=== PATIENT | female | born 1995 | race Caucasian/White ===

== ENCOUNTER 2020-09-16 10:23 | Emergency (ER) | payer BC, SELFPAY ==
--- NOTE | ~2020-09-16 | US_ITS ---
EXAMINATION: US pelvic complete w TV DATE: 09/16/2020 13:19 INDICATION: Right pelvic pain. TECHNIQUE: Multiple transabdominal and transvaginal sonographic images of the pelvis were obtained. COMPARISON: CT abdomen and pelvis 09/16/2020 FINDINGS: TRANSABDOMINAL ULTRASOUND: The uterus measures 7.6 x 4.0 x 5.0 cm. There is no free fluid in the pelvis. TRANSVAGINAL ULTRASOUND: The endometrial complex measures 4 mm in thickness. The right ovary measures 3.3 x 1.9 x 2.3 cm. The left ovary measures 3.1 x 2.0 x 2.3 cm. There is normal vascular flow in the ovaries. IMPRESSION: 1. Normal pelvis. Reviewed, dictated and finalized at location A. ROOFER IMPRESSION: 1. Normal pelvis.
--- NOTE | ~2020-09-16 | CT_ITS ---
EXAMINATION: CT abdomen pelvis w con EXAM DATE: 09/16/2020 12:24 INDICATION: Right lower quadrant abdominal pain. TECHNIQUE: Spiral CT of the abdomen and pelvis was performed following intravenous injection of 100 m L Omnipaque 350. Axial, coronal and sagittal images were reviewed. The dose-length product (DLP) fo r this examination was 347.45 mGy-cm. The exposure was tailored according to patient size (auto mA e xposure control), and iterative reconstruction (ASIR) was used as additional dose reduction technique . There is no prior study for comparison. FINDINGS: The liver, spleen, adrenal glands and pancreas are unremarkable. Gallbladder is unremarkab le. No biliary obstruction. Portal and splenic veins are patent. Kidneys enhance symmetrically. T here is no hydronephrosis. The uterus is unremarkable. The bladder is unremarkable. There is no retroperitoneal or pelvic lymphadenopathy. The appendix is normal. The stomach and small bowel are unremarkable. There is expected amount of c olonic stool. No free intraperitoneal gas. The heart is normal in size. There are no pericardial or pleural effusions. The lung bases are unremarkable. Thoracic Flores rods. Moderate thoracic dextroscoliosis and lumbar levoscoliosis. Chronic right-sided L5 spondylolysis. No subluxation. IMPRESSION: 1. No acute intra-abdominal findings. Reviewed, dictated and finalized at location A. ER COATER
[2020-09-16 10:30] VITALS: BP 130/79; PULSE 81; RESP 16; TEMP 36.7; O2SAT 97
--- NOTE | 2020-09-16 10:47 | ED.ABDPAIN ---
HPI - Abdominal Pain General Chief Complaint: Abdominal Pain Stated Complaint: R side pain Time Seen by Provider: 09/16/20 10:47 Source: patient Mode of arrival: ambulatory Limitations: no limitations History of Present Illness HPI narrative: 25-year-old woman was previously well comes in today complaining of right lower quadrant pain that started yesterday. She states the pain is worse with bending over and with sudden movements like coughing. She has no pain with walking. She went to her doctor to discuss vaginal discharge and irregular vaginal bleeding that she has had for several months that she attributes to her Implanon. She states that pain is worse today and saw her doctor who sent her here for further evaluation. She has had no appetite; she last ate at approximately 8:30 a.m. this morning. States that she has no nausea, vomiting, diarrhea, vaginal bleeding, or rash. Patient states that she does not have an allergy to morphine however her sister does. MD elicited complaint: abdominal pain Onset (ago): day(s) (1) Pain Consistency: constant Location: RLQ Severity: moderate Quality: sharp Radiation: none Migration to: no migration Exacerbating factors: movement Relieving factors: rest (and sitting up) Related Data Date of Last Menstrual Period: 09/14/20 Home Medications Medication Instructions Recorded Confirmed No Home Medications 09/16/20 09/16/20 Allergies Allergy/AdvReac Type Severity Reaction Status Date / Time No Known Allergies Allergy Verified 09/16/20 11:32 Review of Systems Constitutional: Constitutional: Denies chills, Denies fever(s) and Denies weakness ENT: Denies dysphagia, Denies nasal congestion and Denies sore throat Cardiovascular: Cardiovascular: Denies chest pain and Denies radiating jaw, neck or arm pain Respiratory: Respiratory: Denies cough, Denies dyspnea and Denies wheezing Gastrointestinal: Gastrointestinal: Reports abdominal pain, Denies diarrhea, Denies nausea and Denies vomiting Genitourinary: Genitourinary: Denies nocturia and Denies dysuria Musculoskeletal: Musculoskeletal: Denies back pain, Denies arthralgias and Denies joint swelling Integumentary/Breasts: Skin/Breast: Denies pruritus, Denies erythema and Denies rash Neurologic: Denies vertigo, Denies dizziness and Denies syncope Endocrine: Endocrine: Denies polydipsia and Denies polyuria Hematologic/Lymphatic: Hematologic/Lymphatic: Denies easy bleeding and Denies easy bruising Allergic/Immunologic: Allergic/Immunologic: Denies lip swelling and Denies throat swelling [facility] Social History Social History (Updated 09/16/20 @ 11:05 by Daniel Zamora MD) Smoking status: Current some day smoker Alcohol intake: current Alcohol use details: rarely Substance use type: marijuana Other substance usage details: Occasional Living arrangements: with family 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 HENMT: Head: normal to inspection Ears: external ears normal, TM's normal bilaterally and EAC's normal General nose exam: Normal nares present Face and sinus: normal facial exam Mouth: Yes moist mucous membranes Throat: posterior oropharynx normal Eyes: Conjunctivae: conjunctivae normal Pupils: Equal, round and reactive pupils present EOM: EOMs intact bilaterally Resp: Effort & Inspection: normal respiratory effort and not labored Auscultation: clear to auscultation bilaterally, no rales, no rhonchi and no wheezes Cardio: Rate: regular rate Rhythm: regular rhythm Heart sounds: no murmurs GI: GI Palp: Yes Soft to palpation, No Tenderness to palpation present (GI), No Guarding due to palpation present (GI) and No Palpable mass present Auscultation: normal bowel sounds Back/Spine/Pelvis: Back: no C
[2020-09-16 10:53] LABS: Add Urine Microscopic? NO; Appearance Urine Clear (Clear); Bilirubin Urine Negative (Negative); Blood Urine Negative (Negative); Color Urine Yellow (Yellow); Glucose Urine UA Negative (Negative); Ketones Urine Negative (Negative); Leukocyte Esterase Ur Negative LEU/UL (Negative); Nitrate Urine Negative (Negative); Protein Urine Negative (Negative); Urobilinogen Urine 0.2 mg/dL (0.2-1.0); pH Urine 6.5 (5.0-8.0)
[2020-09-16 10:59] LABS: Pregnancy On Board Control Positive; Urine Pregnancy Test Negative
[2020-09-16] MEDS: HYDROmorphone HCL INJ (*CRX) 2 MG/ML VIAL 0.5 MG IV PUSH ×2 (11:06→12:53)
[2020-09-16] MEDS: ONDANSETRON INJ 4 MG/2 ML VIAL IV PUSH (11:06)
[2020-09-16] MEDS: SODIUM CHLORIDE 0.9% IV 1,000 ML 999 ML IV CONT (11:07)
[2020-09-16 11:11] LABS: Basophils Absolute Auto 0.04 K/mm3 (0.00-0.10); Basophils Percent Auto 0.7 % (0.0-1.0); Eosinophils Absolute Auto 0.17 K/mm3 (0.02-0.50); Eosinophils Percent Auto 3.2 % (1.0-6.0); Hematocrit 42.3 % (35.0-49.0); Hemoglobin 13.9 g/dL (12.0-15.0); Immature Granulocyte Absolute 0.02 K/mm3 (0.00-0.00); Immature Granulocyte Percent A 0.4 % (0.0-0.0); Lymphocytes Percent Auto 35.3 % (18.0-42.0); Mean Corpuscular HGB Conc 32.9 g/dL (32.0-36.0); Mean Corpuscular Hemoglobin 30.8 pg (27.0-31.0); Mean Corpuscular Volume 93.8 fL (78.0-102.0); Mean Platelet Volume 8.7 fl (9.2-11.8); Monocytes Absolute Auto 0.43 K/mm3 (0.10-0.90); Neutrophils Absolute Auto 2.8 K/mm3 (1.7-7.2); Neutrophils Percent Auto 52.4 % (50.0-70.0); Platelet Count Result 296 K/mm3 (150-420); Red Blood Count 4.51 M/mm3 (4.20-5.40); White Blood Count 5.4 K/mm3 (4.8-10.8)
[2020-09-16 11:26] LABS: Partial Thromboplastin Time 34.5 SEC (23.90-30.70)
[2020-09-16 11:27] LABS: Alanine Aminotransferase 16 U/L (14-59); Albumin Level 4.4 g/dL (3.4-5.0); Alkaline Phosphatase 75 U/L (46-116); Anion Gap 9 mmol/L (8-16); Aspartate Amino Transferase 11 U/L (15-37); Bilirubin,Total 0.6 mg/dL (0.00-1.00); Blood Urea Nitrogen 7 mg/dL (7-18); Calcium 9.4 mg/dL (8.5-10.1); Carbon Dioxide 28 mmol/L (21-32); Chloride 101 mmol/L (98-108); Estimated Glomerular Filt Rate > 60; Glucose 91 mg/dL (70-99); Osmolality Calculated 284 mOsm/kg (285-295); Sodium 138 mmol/L (136-145); Total Protein 8.1 g/dL (6.4-8.2)
[2020-09-16 11:32] LABS: Lactic Acid Reflex 0.7 mmol/L (0.4-2.0)
--- NOTE | 2020-09-16 13:03 | PC.NURSE ---
FEMALE ASSISTANCE WITH PELVIC EXAM - PT THEN SENT TO US
[2020-09-16] MEDS: cefTRIAXone 500 MG in DEXTROSE 5% IN WATER 50 ML 100 MG IVPB (13:38)
[2020-09-16 13:55] VITALS: BP 132/82
== END 2020-09-16 13:55 | disposition home or self-care (01) ==
PROVIDERS: Emergency Provider Emergency Medicine
DX: R10.2 Pelvic and perineal pain (principal)
CPT/HCPCS: 36415; 74177; 76830; 76856; 80053; 81003; 81025; 83605; 85025; 85610; 85730; 96361; 96365; 96375; 96376; 99283; 99284; J0696; J1170; J2405; J7030; Q9967

== ENCOUNTER 2021-07-24 14:27 | Outpatient (CLI) | payer BC, SELFPAY ==
--- NOTE | ~2021-07-24 | XR_ITS ---
EXAMINATION: XR lumbar spine 2-3V EXAM DATE: 07/24/2021 14:53 INDICATION: Scoliosis of lumbar spine w/ lower back pain since Halloween. TECHNIQUE: Lumber spine frontal, lateral, lateral L5-S1 projections for interpretation. There is no prior study for comparison. FINDINGS: Incompletely imaged Flores rods with lowest level pedicular screws at L1. There is mod erate lumbar levoscoliosis. Thin appearing L5 pars without evidence subluxation. Mild lumbar disc dis ease. There is mild to moderate lumbar facet arthropathy. Sacrum, sacroiliac joints, sacral arcuate l avni are intact. IMPRESSION: 1. Moderate lumbar levoscoliosis. 2. Thoracic-L1 Flores rods. 3. Mild to moderate facet arthropathy. Reviewed, dictated and finalized at location A. IC WELFARE DIRECTOR
== END 2021-07-24 14:28 | disposition home or self-care (01) ==
PROVIDERS: PCP Physician Assistant; Visit Provider Physician Assistant
DX: M41.87 Other forms of scoliosis, lumbosacral region (principal)
CPT/HCPCS: 72100

== ENCOUNTER 2021-07-26 12:14 | Outpatient (CLI) | payer BC, SELFPAY ==
--- NOTE | ~2021-07-26 | US_ITS ---
EXAMINATION: US pelvic complete DATE: 07/26/2021 12:31 INDICATION: Hemorrhagic cyst of the ovary TECHNIQUE: Multiple transabdominal sonographic images of the pelvis were obtained. COMPARISON: 09/16/2020 FINDINGS: The uterus measures 6.8 x 3.5 x 4.1 cm. The endometrial complex measures 5 mm. The right ov jimena measures 2.2 x 1.4 x 1.8 cm. The left ovary measures 2.3 x 1.8 x 2.0 cm. No ovarian cysts are stew ntified. There is normal vascular flow in the ovaries. There is no free fluid in the pelvis. IMPRESSION: 1. Unremarkable pelvic ultrasound. Reviewed, dictated and finalized at location A. 'S CUSTOM HAIR PIECE CONSULTANT
== END 2021-07-26 12:15 | disposition home or self-care (01) ==
LOC: CHSIMG 12:15
PROVIDERS: PCP Physician Assistant; Visit Provider Physician Assistant
DX: M41.87 Other forms of scoliosis, lumbosacral region (principal); N83.292 Other ovarian cyst, left side
CPT/HCPCS: 76856

== ENCOUNTER 2021-07-26 13:56 | Outpatient (RCR) | payer BC, SELFPAY ==
--- NOTE | 2021-08-03 06:59 | PTOPEVAL ---
Thank you for referring Basilia Booth to [facility].? The patient is scheduled to be seen for therapy? ____x/week for ___ weeks. Please review, sign, date and return this plan of care DIA. I agree with and certify that the following plan of care is medically necessary. Referring Physician Date Admitting Provider: Attending Provider: Mikey Garcia, PA Referring Provider: *PT Outpatient Evaluation Start: 07/26/21 14:08 Freq: Status: Active Protocol: Document 07/26/21 14:00 [facility] (Rec: 08/02/21 21:51 [facility] Filej) Therapy Assessment Status Assessment Status Assessment Status Evaluation Outpatient Past Medical History Musculoskeletal History Hx Scoliosis Yes Hx Spinal Surgery Yes: FUSION Evaluation Information Problem Diagnosis lumbar radiculopathy Onset 06/13/21 Additional Evaluation Detail oswestry = 46% functionally declined Subjective Information patient reports she has been Query Text:As Reported By Patient/ having increased pain in the Family lower back and down the L greater than R LE for over a month. she reports no injury and no change in activity. she reports she has pain that runs down the back of the L LE , and is mostly along the entire lower back. she reports she has increased pain with standing, working, lifting, and any increased time doing activities. she reports she is most comfortable when laying down on her side. she reports discomfort with laying directly on her back which used to be comfortable for her . 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 she reports she has had a history of back problems since she was 13 when she developed an acute onset scoliosis that required rods in her back to stabilize. Pain Assessment Timing of Pain Assessment Timing of Pain Assessment Assessment Pain Scale Pain Scale Used Numeric (1 - 10) Self Report Pain Assessment
--- NOTE | 2021-09-27 07:48 | PCPTNOTE ---
patient has not been back to skilled PT since 07/31/21. as of this date, she will be dc'd from skilled PT services and all progress towards goals will be taken from her most recent evaluation/note. DARIUS
== END 2021-07-31 13:55 | disposition home or self-care (01) ==
LOC: CHSPT 13:56
PROVIDERS: PCP Physician Assistant; Visit Provider Physician Assistant
DX: M54.16 Radiculopathy, lumbar region (principal)
CPT/HCPCS: 97014; 97110; 97140; 97161; G0283

== ENCOUNTER 2022-10-24 11:37 | Outpatient (CLI) | payer BC, SELFPAY ==
[2022-10-24 12:00] LABS: Basophils Absolute Auto 0.05 K/mm3 (0.00-0.10); Basophils Percent Auto 0.5 % (0.0-1.0); Eosinophils Absolute Auto 0.15 K/mm3 (0.02-0.50); Eosinophils Percent Auto 1.5 % (1.0-6.0); Hematocrit 39.8 % (35.0-49.0); Hemoglobin 13.4 g/dL (12.0-15.0); Immature Granulocyte Absolute 0.05 K/mm3 (0.00-0.00); Immature Granulocyte Percent A 0.5 % (0.0-0.0); Lymphocytes Absolute Auto 2.36 K/mm3 (1.10-4.50); Lymphocytes Percent Auto 22.9 % (18.0-42.0); Mean Corpuscular HGB Conc 33.7 g/dL (32.0-36.0); Mean Corpuscular Hemoglobin 31.8 pg (27.0-31.0); Mean Corpuscular Volume 94.3 fL (78.0-102.0); Mean Platelet Volume 8.5 fl (9.2-11.8); Monocytes Absolute Auto 0.72 K/mm3 (0.10-0.90); Neutrophils Percent Auto 67.6 % (50.0-70.0); Platelet Count Result 333 K/mm3 (150-420); Red Blood Count 4.22 M/mm3 (4.20-5.40); Red Cell Distribution Width 13.2 % (11.6-14.4); White Blood Count 10.3 K/mm3 (4.8-10.8)
[2022-10-24 12:54] LABS: HIV 1 P24 AG Negative (Negative); HIV 1/2 AB Negative (Negative)
[2022-10-26 10:48] LABS: Rubella IgG Antibody 1.14 Index
[2022-10-26 12:20] LABS: RPR Screen Non-Reactive (Non-Reactive)
[2022-10-26 17:57] LABS: CMV IgG Antibody <0.60 U/mL (<0.60)
[2022-11-05 11:48] LABS: CF Result NEGATIVE (NEGATIVE); Ethnicity W
[2022-11-07 15:21] LABS: SMA 2.0 RISK VARIANT NOT DETECTED
[2022-11-09 13:12] LABS: SMA Results Received Yes
== END 2022-10-24 11:38 | disposition home or self-care (01) ==
LOC: CHSLAB 11:39
PROVIDERS: PCP Physician Assistant; Visit Provider Student in an Organized Health Care Education/Training Program
DX: N94.89 Other specified conditions associated with female genital organs and menstrual cycle (principal); R82.90 Unspecified abnormal findings in urine
CPT/HCPCS: 36415; 81220; 81329; 84702; 85025; 86592; 86644; 86703; 86747; 86762; 86787; 86850; 86900; 86901; 87086

== ENCOUNTER 2023-03-19 08:00 | Outpatient (RCR) | payer BC, SELFPAY ==
[2023-03-16 10:06] LABS: Basophils Percent Auto 0.5 % (0.2-1.2); Eosinophils Absolute Auto 0.1 K/mm3 (0-0.3); Eosinophils Percent Auto 1.2 % (0-4.4); Hematocrit 39.1 % (37.0-47.0); Hemoglobin 12.8 g/dL (12.0-15.0); Immature Granulocyte Absolute 0.11 K/mm3 (0.00-0.031); Immature Granulocyte Percent A 1.3 % (0-0.5); Lymphocytes Absolute Auto 1.66 K/mm3 (0.9-3.2); Lymphocytes Percent Auto 20.4 % (18.3-44.2); Mean Corpuscular HGB Conc 32.7 g/dl (32-36); Mean Corpuscular Hemoglobin 32.5 pg (26-34); Mean Corpuscular Volume 99.2 fl (80-100); Mean Platelet Volume 8.7 fl (7.4-10.4); Monocytes Absolute Auto 0.5 K/mm3 (0.1-0.6); Monocytes Percent Auto 5.5 % (2.6-8.5); Neutrophils Absolute Auto 5.8 K/mm3 (1.3-6.7); Neutrophils Percent Auto 71.1 % (45.5-73.1); Platelet Count Result 250 k/mm3 (150-375); Red Blood Count 3.94 M/mm3 (4.2-5.4); Red Cell Distribution Width 13.1 % (11.5-14.5); White Blood Count 8.2 K/mm3 (4.5-10.0)
[2023-03-16 10:18] LABS: Glucose 1 Hour PP 50gm Dose 61 mg/dL
[2023-03-16 10:58] LABS: HIV 1/2 Ab P24 Ag Result Negative (Negative)
[2023-03-19] MEDS: RHO(D) IMMUNE GLOBULIN 300 MCG/2 ML SYRINGE IM (08:57)
== END 2023-06-14 23:59 | disposition home or self-care (01) ==
LOC: ANHLAB 08:00
PROVIDERS: PCP Physician Assistant; Visit Provider Obstetrics & Gynecology
DX: Z11.4 Encounter for screening for human immunodeficiency virus [HIV] (principal); Z29.13 Encounter for prophylactic Rho(D) immune globulin; O36.0190 Maternal care for anti-D [Rh] antibodies, unspecified trimester, not applicable or unspecified; Z3A.00 Weeks of gestation of pregnancy not specified
CPT/HCPCS: 36415; 82947; 85025; 85461; 86703; 86850; 86900; 86901; 90384; 96372; G0432; J2790

== ENCOUNTER 2023-06-06 12:27 | Inpatient (IN) | payer BC, SELFPAY ==
[2023-06-06] VITALS (13 sets, daily range): BP systolic 112–150; BP diastolic 69–90; PULSE 71–88; RESP 16; TEMP 36.6–37.2; BMI 31.0
[2023-06-06 13:49] LABS: Basophils Absolute Auto 0.1 K/mm3 (0.0-0.1); Basophils Percent Auto 0.5 % (0.2-1.2); Eosinophils Absolute Auto 0.1 K/mm3 (0-0.3); Eosinophils Percent Auto 0.5 % (0-4.4); Hematocrit 37.5 % (37.0-47.0); Hemoglobin 12.7 g/dL (12.0-15.0); Immature Granulocyte Absolute 0.09 K/mm3 (0.00-0.031); Immature Granulocyte Percent A 0.8 % (0-0.5); Lymphocytes Absolute Auto 1.87 K/mm3 (0.9-3.2); Lymphocytes Percent Auto 17.6 % (18.3-44.2); Mean Corpuscular HGB Conc 33.9 g/dl (32-36); Mean Corpuscular Hemoglobin 32.7 pg (26-34); Mean Corpuscular Volume 96.6 fl (80-100); Mean Platelet Volume 9.7 fl (7.4-10.4); Monocytes Absolute Auto 0.5 K/mm3 (0.1-0.6); Monocytes Percent Auto 4.6 % (2.6-8.5); Neutrophils Absolute Auto 8.1 K/mm3 (1.3-6.7); Platelet Count Result 229 k/mm3 (150-375); Red Blood Count 3.88 M/mm3 (4.2-5.4); Red Cell Distribution Width 13.4 % (11.5-14.5); White Blood Count 10.6 K/mm3 (4.5-10.0)
[2023-06-06 13:51] LABS: Appearance Urine Cloudy (Clear); Bacteria Urine None Seen /hpf; Bilirubin Urine Negative (Negative); Blood Urine Negative (Negative); Color Urine Yellow (Yellow); Glucose Urine UA Negative (Negative); Ketones Urine Negative (Negative); Leukocyte Esterase Ur Negative LEU/UL (NEGATIVE); Nitrate Urine Negative (Negative); Non Pathogenic Casts 0-2; Protein Urine Negative (Negative); RBC Urine 0-2 /hpf (0-2); Squamous Epithelial Cell Urine Occasional /hpf (Few); Urobilinogen Urine 0.2 mg/dL (<2.0); WBC Urine 0-5 /hpf (0-3); pH Urine 7.5 (5.0-9.0)
[2023-06-06 13:54] LABS: Add Urine Microscopic? YES; Alanine Aminotransferase 18 U/L (6-35); Albumin Level 3.6 g/dL (3.5-5.1); Alkaline Phosphatase 107 U/L (38-126); Anion Gap 6 mmol/L (8-16); Aspartate Amino Transferase 24 U/L (14-36); Bilirubin,Total 0.4 mg/dL (0.2-1.3); Blood Urea Nitrogen 10 mg/dL (7-17); Calcium 10.5 mg/dL (8.4-10.2); Carbon Dioxide 24 mmol/L (22-30); Chloride 104 mmol/L (98-107); Estimated Glomerular Filt Rate > 60; Glucose 100 mg/dL (65-110); Potassium 3.6 mmol/L (3.4-5.0); Sodium 134 mmol/L (137-145); Uric Acid 4.9 mg/dL (2.5-7.5)
[2023-06-06 13:56] LABS: Creatinine Urine 56.2 mg/dL; Total Protein Urine Random 14 mg/dL; Ur Ttl Prot Creatinine Ratio 0.25 mg/mg (0-0.20)
--- NOTE | 2023-06-06 14:05 | LDADM ---
This patient, Basilia Booth, was admitted to Labor/Delivery/Recovery 108 on 06/06/23 at 12:27. Plans for labor, pain management and were discussed with patient. Patient/family oriented to hospital policies and general routines including ID bracelet, bed and alarms, visiting hours, pain management, procedures, bathroom and other care routines, personal items, smoking policy, room service/diet and guest tray routines, infant security routines, and visiting hours. Patient/Family are encouraged to report perceived risks to care and to ask questions if they do not understand what they are told or what they should do. See OBIX for further documentation.
[2023-06-06] MEDS: DINOPROSTONE 10 MG VAG INSERT VAGINAL (14:10)
[2023-06-06 14:31] LABS: Hepatitis B Surface Antigen Negative (Negative)
--- NOTE | 2023-06-06 15:24 | PM.IMHP ---
H&P: HPI History of Present Illness Date/Time: 06/06/23 15:24 Chief Complaint: elevated blood pressure Narrative: Basilia is a 27yo @ 40.5wks who presented to clinic for routine care and was found to have elevated blood pressures. She denies ALVAREZ, vision changes, CP, SOB or RUQ pain. PEC w/u is negative. She was scheduled to be induced this weekend. She reports good movement. She is having irregular ctx. NO Vb or lof. Her is complicated by: - H/o anxeity/depression - H/o scoliosis s/p jose e placement (end at L1) - Gestational HTN Review of Systems Constitutional: Constitutional: Denies chills, Denies fever(s) and Denies headache(s) Eyes: Eyes: Denies change in vision ENT: Denies headache(s) Cardiovascular: Cardiovascular: Denies chest pain and Denies dyspnea Respiratory: Respiratory: Denies dyspnea Genitourinary: Genitourinary: Denies abnormal vaginal bleeding and Denies vaginal discharge Neurologic: Denies headache(s) Psychiatric: Psychiatric: Denies anxiety and Denies depression [facility] Past Medical History Medical History Suppression of menses Surgical History Surgical History History of spinal fusion Family History Family History Other Diabetes mellitus, Onset Age: 0m 0d uncle Social History Social History Smoking status: Former smoker Tobacco type: cigarettes Smoking end date: 08/19/22 Alcohol intake: current Alcohol use details: rarely Substance use: never Substance use type: marijuana Other substance usage details: Occasional Lack of Transportation: No Lack of Food: Never True Current Housing: I Have Housing Concerned About Future Housing: No Difficulty Paying Gas/Electric Bills: No Difficulty Paying for Meds: No Currently Unemployed: No Education: High School Diploma/GED Difficulty w/ Childcare or Family Care: No Living arrangements: with family Occupation/Education: occupation 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 Gender identity (if verbalized by the patient): Female Sexual Orientation (if Verbalized by the Patient): Straight or Heterosexual Spiritual care concerns: No Meds Home Medications and Allergies Home Medications Medication Instructions Recorded Confirmed Type prenat.vits,mode,ego-aguo-tonab 1 tablet PO DAILY 10/23/22 06/06/23 History Allergies Allergy/AdvReac Type Severity Reaction Status Date / Time No Known Allergies Allergy Verified 06/06/23 09:48 Vital Signs Vital Signs - 24 hr 06/06/23 13:53 06/06/23 14:00 06/06/23 14:15 Pulse Rate 79 83 80 Blood Pressure 126/81 134/82 137/82 Oxygen Delivery 06/06/23 14:30 06/06/23 14:45 06/06/23 15:00 Pulse Rate 88 80 83 Blood Pressure 150/87 H 136/83 112/77 Oxygen Delivery 06/06/23 15:15 06/06/23 14:02 06/06/23 14:01 Pulse Rate 86 83 Blood Pressure 132/90 134/82 Oxygen Delivery Room Air Exam Const: General: cooperative, healthy appearing, no acute distress and obese Nutritional Appearance: obese Orientation/consciousness: patient oriented x3 Resp: Effort & Inspection: normal respiratory effort Cardio: Rate: regular rate GI: GI Palp: No abdominal tenderness : Other: FHT's: 130's/ mod karen/ + accels/ no decels - cat 1 TOCO: ctxs q7min Cervix: 2/70/-2. soft/ant Membranes: intact Presentation: cephalic Skin: General skin exam: normal color Neuro: General: patient oriented x3 Extrem: General: normal to inspection Psych: Appearance: grossly normal Affect: normal affect Attitude: cooperative H&P: Results Labs Labs: Short CBC 06/06/23 Range/Units 13:35 WBC 10.6 H (4.5-10.0) K/mm3 Hgb 12.7 (12.0-15.0) g/dL Hct 37.5 (37.0-47.0) %
--- NOTE | 2023-06-06 16:06 | WPDHPUPDATE1 ---
History and Physical Update Update Date/Time: 06/06/23 16:06 History and Physical has been reviewed, including an updated exam of the patient. There are NO changes in the patient's condition. Risks, benefits, and alternatives have been discussed and questions answered. Patient agrees to proceed with procedure.
--- NOTE | 2023-06-06 17:48 | WPDANESEPP ---
Anes - Eval Pre Procedure Procedure: Labor epidural Date/Time: 06/06/23 17:48 Surgeon: Mikey Preop Diagnosis: Abdominal pain with contractions Pre Op Diagnosis: IOL Patient Data Age: 27 Gender: F Height: 1.63 m Weight: 82 kg Last Vital Signs Temp 97.8 F 06/06/23 13:30 Pulse 77 06/06/23 16:00 BP 130/77 06/06/23 16:00 O2 Del Method Room Air 06/06/23 14:02 Allergies Allergy/AdvReac Type Severity Reaction Status Date / Time No Known Allergies Allergy Verified 06/06/23 09:48 Home Medications Medication Instructions Recorded Confirmed Type prenat.vits,mode,ctk-mlec-keyoi 1 tablet PO DAILY 10/23/22 06/06/23 History Laboratory Tests 06/06/23 13:35 WBC 10.6 H K/mm3 (4.5-10.0) RBC 3.88 L M/mm3 (4.2-5.4) Hgb 12.7 g/dL (12.0-15.0) Hct 37.5 % (37.0-47.0) MCV 96.6 fl (80-100) MCH 32.7 pg (26-34) MCHC 33.9 g/dl (32-36) RDW 13.4 % (11.5-14.5) Plt Count 229 k/mm3 (150-375) MPV 9.7 fl (7.4-10.4) Immature Gran % (Auto) 0.8 H % (0-0.5) Neut % (Auto) 76.0 H % (45.5-73.1) Lymph % (Auto) 17.6 L % (18.3-44.2) [place] % (Auto) 4.6 % (2.6-8.5) Eos % (Auto) 0.5 % (0-4.4) Baso % (Auto) 0.5 % (0.2-1.2) Lymph # (Auto) 1.87 K/mm3 (0.9-3.2) [place] # (Auto) 0.5 K/mm3 (0.1-0.6) Eos # (Auto) 0.1 K/mm3 (0-0.3) Baso # (Auto) 0.1 K/mm3 (0.0-0.1) Abs Immat Gran (auto) 0.09 H K/mm3 (0.00-0.031) Absolute Neuts (auto) 8.1 H K/mm3 (1.3-6.7) Absolute Nucleated RBC 0.0 K/mm3 (0.0-0.012) Nucleated RBC % 0.0 % (0.0-0.2) Sodium 134 L mmol/L (137-145) Potassium 3.6 mmol/L (3.4-5.0) Chloride 104 mmol/L (98-107) Carbon Dioxide 24 mmol/L (22-30) Anion Gap 6 L mmol/L (8-16) BUN 10 mg/dL (7-17) Creatinine 0.60 L mg/dL (0.7-1.0) Estim Creat Clear Calc Not Reportable Estimated GFR > 60 (59 - ) Glucose 100 mg/dL (65-110) Uric Acid 4.9 mg/dL (2.5-7.5) Calcium 10.5 H mg/dL (8.4-10.2) Total Bilirubin 0.4 mg/dL (0.2-1.3) AST 24 U/L (14-36) ALT 18 U/L (6-35) Alkaline Phosphatase 107 U/L (38-126) Total Protein 7.0 g/dL (6.3-8.2) Albumin 3.6 g/dL (3.5-5.1) Urine Color Yellow (Yellow) Urine Appearance Cloudy H (Clear) Urine pH 7.5 (5.0-9.0) Ur Specific [place] 1.010 (1.001-1.035) Urine Protein Negative mg/dL (Negative) Urine Glucose (UA) Negative mg/dL (Negative) Urine Ketones Negative mg/dL (Negative) Ur Blood (Man) Negative (Negative) Urine Nitrate Negative (Negative) Urine Bilirubin Negative (Negative) Urine Urobilinogen 0.2 mg/dL (<2.0) Ur Leukocyte Esterase Negative MUSA/UL (NEGATIVE) Urine RBC 0-2 /hpf (0-2) Urine WBC 0-5 /hpf (0-3) Ur Squamous Epith Cells Occasional /hpf (Few) Urine Bacteria None seen /hpf Urine Casts 0-2 U Random Total Protein 14 mg/dL Urine Creatinine 56.2 mg/dL Protein/Creat Ratio 2 0.25 H mg/mg (0-0.20) RPR Pending Hep Bs Antigen Negative (Negative) Blood Type O Negative Antibody Screen Negative : gestational age HCG: positive Patient hx anesthesia problems: none Family hx anesthesia problems: none Results Review: All pre-operative results and documents have been reviewed as part of the pre-operative evaluation. [facility] Past Medical History Medical History (Updated 06/06/23 @ 17:50 by Tone Magaña CRNA) History of smoking Overweight (BMI 25.0-29.9) and not yet delivered Scoliosis Suppression of menses Surgical History Surgical History History of spinal fusion Family History Family History Other Diabetes mellitus, Onset Age: 0m 0d uncle Social History Social Hi
[2023-06-07] VITALS (27 sets, daily range): BP systolic 123–142; BP diastolic 63–95; PULSE 67–96; RESP 16–18; TEMP 36.2–37.3; O2SAT 97
[2023-06-07] MEDS: LACTATED RINGERS 1,000 ML 125 ML IV CONT (04:44)
[2023-06-07] MEDS: OXYTOCIN 30 UNITS/NS 500 ML 30 UNITS/500 ML BAG IV CONT (04:45)
--- NOTE | 2023-06-07 08:03 | PM.OBPNLAB ---
Pain Control Date/time seen: 06/07/23 08:03 Pain control: tolerating well Pelvic Exam Dilation (cm): 3 (.5) Effacement (%): 80 station: -2 Amniotic membrane status: Ruptured (SROM, clear 0740) Contractions Monitor mode: External Contraction frequency: 2 Contraction pattern: Regular Contraction intensity: Strong/Firm Status status: Category l Assessment and Plan Pitocin rate (mU/min): 6 Assessment: induction ongoing Plan: continuous present management
--- NOTE | 2023-06-07 12:08 | PM.OBPRVD ---
OB - Delivery Note Procedure Delivery date: 06/07/23 Events: Gestational Hypertension Induction method: Per Cervidil Protocol Delivery augmentation: Pitocin Delivery monitor: External FHT and External Uterine Route of delivery: Laceration Description: Labial (left) Delivery repair: vicryl Specimen: Yes (placenta) Quantitative Blood Loss (ml): 250 Anesthesia type: None Disposition: Floor [place] Baby Date of : 06/07/23 Time of : 11:39 Weeks of gestation at delivery: 40 (.6) gender: Male presentation: vertex Placenta delivery description: Expressed Cord Vessel Description: 3 Vessels and Delayed Cord Clamping score one minute: 8 score five minutes: 9 Narrative: Basilia progressed to complete dilation with strong desire to push. She pushed for approximately 30 minutes with good maternal effort. She delivered the head over intact perineum. No nuchal cord was palpated. She easily delivered the infant's shoulders and body without complication. The was immediately placed skin to skin and had spontaneous cry. Delayed cord clamping was performed. The umbilical cord was then doubly clamped and cut. A segment of the cord was collected for cord gases. The remaining cord blood was collected for typing. With Pitocin running and gentle downward traction on the cord, the placenta delivered without complications. Good uterine tone with minimal bleeding was noted. She was examined and a left labial laceration was identified. The labia was anesthetized using 1% lidocaine, 8cc were used. The labia was repaired in the normal fashion using 3-0 Vicryl. Minimal bleeding with good uterine tone remained. Sponge, lap, instrument, and needle counts were correct at the end of the procedure. Mom and baby were left bonding in the birthing suite in stable condition. [facility] Delivery Billing Delivery Delivery: Delivery Charge
[2023-06-07] MEDS: IBUPROFEN 600 MG TABLET PO (13:30)
[2023-06-07 14:19] LABS: Rapid Plasma Reagin Non-Reactive (NonReactive)
--- NOTE | 2023-06-07 15:23 | OBPPTRN ---
Patient transferred to post room #290 pt ambulated to unit. Support person present. Oriented to unit, room, information board, rooming in, admission packet and security measures. Patient verbalizes understanding.
[2023-06-08] MEDS: IBUPROFEN 600 MG TABLET PO ×2 (01:03→22:47)
[2023-06-08 02:22] VITALS: BP 140/85; PULSE 84; RESP 16; TEMP 36.9; O2SAT 99
[2023-06-08 05:13] LABS: Hematocrit 34.3 % (37.0-47.0); Hemoglobin 11.5 g/dL (12.0-15.0)
[2023-06-08 11:00] VITALS: BP 123/78; PULSE 73; RESP 14; TEMP 36.8; O2SAT 96
--- NOTE | 2023-06-08 12:15 | PM.OBPNVD ---
OB - PN: Subj Subjective Date/time seen: 06/08/23 12:15 Interval history: Mild perineal tenderness improved some with Motrin. Denies headache scotomata or right upper quadrant pain. Patient comments: tolerating diet and other (Decreasing lochia.) [place] baby status: doing well OB - PN: Obj Data Labs 06/08/23 04:51 06/06/23 13:35 Labs: Laboratory Results - last 24 hr 06/06/23 06/08/23 13:35 04:51 Hgb 11.5 L Hct 34.3 L RPR Non-reactive Blood Type O Negative Antibody Screen Negative Screen Negative Baby's Blood Type O pos Baby's ABHI Negative Doses of RhIg Required 1 OB - PN A/P Assessment and Plan (1) Vaginal delivery: Code(s): O80 - Encounter for full-term uncomplicated delivery Status: Acute Assessment and Plan: No signs or symptoms of preeclampsia. Blood pressure stable. Continue routine post care. Plan day: 1 Plan: routine care Comments: Patient doing well. Time Spent With Patient Time: Total time spent is greater than 50% in coordination of care (as documented) at patient's floor/unit and/or counseling patient: Exam Const: General: no acute distress Psych: Affect: normal affect Other: Abd: fundus firm below umbilicus, nontender Perineum: healing Ext: nontender
[2023-06-08 17:50] VITALS: BP 127/82; PULSE 66; RESP 16; TEMP 36.7; O2SAT 98
[2023-06-08] MEDS: RHO(D) IMMUNE GLOBULIN 300 MCG/2 ML SYRINGE IM (17:50)
[2023-06-08 20:00] VITALS: BP 130/78; PULSE 70; RESP 18; TEMP 36.6; O2SAT 97
[2023-06-09] VITALS: BP 125/77
[2023-06-09 04:00] VITALS: BP 124/83
[2023-06-09] MEDS: IBUPROFEN 600 MG TABLET PO (04:32)
[2023-06-09 09:15] VITALS: BP 124/82; PULSE 85; RESP 16; TEMP 37; O2SAT 98
--- NOTE | 2023-06-09 10:09 | PM.OBPNVD ---
OB - PN: Subj Subjective Date/time seen: 06/09/23 10:09 Interval history: She states pain better, decrease lochia. Baby doing well. Ambulating well. Tolerating regular diet. Patient comments: pain well controlled, tolerating diet and other (Decreasing lochia.) [place] baby status: doing well and nursing well OB - PN: Obj Data Labs 06/08/23 04:51 06/06/23 13:35 Labs: Laboratory Results - last 24 hr 06/08/23 04:51 Blood Type O Negative Antibody Screen Negative Screen Negative Baby's Blood Type O pos Baby's ABHI Negative Doses of RhIg Required 1 OB - PN A/P Plan day: 2 Plan: discharge home and other Comments: Patient doing well. Follow up 4-6 weeks. Discharge instructions provided. Time Spent With Patient Time: Total time spent is greater than 50% in coordination of care (as documented) at patient's floor/unit and/or counseling patient: Time with patient: less than 15 minutes Exam Psych: Affect: normal affect Other: Abd: fundus firm below umbilicus, nontender Ext: nontender
--- NOTE | 2023-06-09 10:11 | PM.OBDSVD ---
DS: Admitting Diagnosis Discharge Date 06/09/23 Admitting Diagnosis Gestational hypertension OB - DS: Summary Hospital Course Hospital Course: She did well . She was ambulating well on day 1. She had adequate pain control on day 2. Baby was doing well. Discharged to home on day 2. OB Procedures : Ultrasound OB Procedures Intrapartum: Spontaneous Vag Delivery OB Procedures: : None Peripartum Data Delivery Method: Natural Vaginal complications: none Status at Discharge Functional status at discharge: independent ambulation Time Spent with Patient Time attestation: Total time spent providing and/or coordinating discharge services: Exam Const: General: cooperative Orientation/consciousness: oriented to person, oriented to place and oriented to time HENMT: Face/Nose/Sinus: Normal external nose present Eyes: General: appearance normal, both eyes and all related structures Resp: Effort & Inspection: normal respiratory effort GI: Inspection: normal to inspection Skin: General skin exam: normal color Neuro: General: oriented to person, oriented to place and oriented to time Extrem: General: normal to inspection and no calf tenderness Psych: Appearance: grossly normal Mental Status: mental status grossly normal DS: Data Data Completed and Pending Pending studies at discharge: Pending at discharge 06/07/23 11:44 Surgical [PTH] Routine Labs on day of discharge: Labs from last 24 hours 06/08/23 04:51 Blood Type O Negative Antibody Screen Negative Screen Negative Baby's Blood Type O pos Baby's ABHI Negative Doses of RhIg Required 1 Discharge Plan Discharge Attending physician on discharge: Anali Jensen Consulting providers: Tone Magaña Discharging Clinician: Edwin Moralez Anticipated Discharge Date/Time: 06/09/23 10:14 Patient Disposition: Home, Self-Care Activity: may shower and pelvic rest Diet: regular Discharge Instructions: Education: Mom and Baby Guide Given to: Mother Follow-Up: Call your delivering provider's office for an appointment to be seen in: 1 Week for blood pressure check, then another appointment for your check up Mom and baby should come to the [facility] for the follow-up appointment. Appointment Date/Time: June 10, 2023 at 2:30 pm What to expect at your follow-up visit: Blood Pressure Check Physical Assessment Call [phone] if you are unable to keep your appointment time. BREAST CARE: * Wear a snug supportive bra. * For engorgement discomfort: Breast Feeding: * Apply warm moist washcloths * Express milk as needed to relieve engorgement * Wear loose clothing * For sore nipples: * Identify correct latch-on * Apply warm moist washcloths before and after nursing * Air dry nipples after nursing * May apply Lansinoh cream to nipples EPISIOTOMY/PERINEAL CARE: * Until bleeding stops, use your basilio bottle after urinating * Change your pad frequently throughout the day * You may take sitz baths several times a day (fill your bathtub with warm water and soak for 20 minutes.) Do NOT bathe in the water * No tub baths until seen by your physician - You may shower ACTIVITY: * Rest as much as possible. * Do not exercise or lift anything heavier than your baby (such as laundry or other children.) * Avoid stairs or driving as much as possible. * Do not put anything into the vagina. No douching, tampons, or sexual activity until seen by physician. NOTIFY PHYSICIAN IF YOU HAVE ANY QUESTIONS OR IF ANY OF THE FOLLOWING SYMPTOMS OCCUR: * If your vaginal area becomes red, swollen, or more painful than what you have experienced in the hospital. * If your vaginal bleeding becomes foul smelling. * If your vaginal bleeding becomes more heav
[2023-06-10 14:49] VITALS: BP 138/91; PULSE 82; RESP 18; TEMP 37.1; O2SAT 99
== END 2023-06-09 13:05 | disposition home or self-care (01) | DRG 807 ==
LOC: ANHLDR 15:55 → ANHOB2 06-09 10:15 → ANHLDR 06-11 08:02 → ANHOB2 06-11 08:02
PROVIDERS: Admitting Provider Obstetrics & Gynecology; PCP Physician Assistant; Visit Provider Obstetrics & Gynecology
DX: O13.4 Gestational [pregnancy-induced] hypertension without significant proteinuria, complicating childbirth (principal); Z37.0 Single live birth; Z3A.40 40 weeks gestation of pregnancy; O70.0 First degree perineal laceration during delivery
CPT/HCPCS: 36415; 80053; 81001; 82570; 84156; 84550; 85014; 85018; 85025; 85461; 86592; 86850; 86900; 86901; 87086; 87088; 87340; 88307; 90384; A9270; J2274; J2590; J2790; J7120

== ENCOUNTER 2023-06-14 11:01 | Outpatient (CLI) | payer BC, SELFPAY ==
[2023-06-14 11:50] VITALS: BP 135/78; PULSE 69
[2023-06-14 12:00] VITALS: BP 128/78; PULSE 77
[2023-06-14 12:07] LABS: Basophils Absolute Auto 0.1 K/mm3 (0.0-0.1); Basophils Percent Auto 0.7 % (0.2-1.2); Eosinophils Absolute Auto 0.4 K/mm3 (0-0.3); Eosinophils Percent Auto 4.4 % (0-4.4); Hematocrit 39.8 % (37.0-47.0); Hemoglobin 13.4 g/dL (12.0-15.0); Immature Granulocyte Absolute 0.11 K/mm3 (0.00-0.031); Immature Granulocyte Percent A 1.3 % (0-0.5); Lymphocytes Absolute Auto 2.06 K/mm3 (0.9-3.2); Lymphocytes Percent Auto 25.2 % (18.3-44.2); Mean Corpuscular HGB Conc 33.7 g/dl (32-36); Mean Platelet Volume 8.6 fl (7.4-10.4); Monocytes Absolute Auto 0.5 K/mm3 (0.1-0.6); Monocytes Percent Auto 6.5 % (2.6-8.5); Neutrophils Percent Auto 61.9 % (45.5-73.1); Platelet Count Result 353 k/mm3 (150-375); Red Blood Count 4.06 M/mm3 (4.2-5.4); Red Cell Distribution Width 13.1 % (11.5-14.5); White Blood Count 8.2 K/mm3 (4.5-10.0)
[2023-06-14 12:14] LABS: Creatinine Urine 73.7 mg/dL; Total Protein Urine Random 37 mg/dL
[2023-06-14 12:15] VITALS: BP 136/85; PULSE 73; RESP 16; TEMP 37.2
[2023-06-14 12:15] LABS: Alanine Aminotransferase 22 U/L (6-35); Albumin Level 3.8 g/dL (3.5-5.1); Alkaline Phosphatase 111 U/L (38-126); Anion Gap 6 mmol/L (8-16); Aspartate Amino Transferase 26 U/L (14-36); Bilirubin,Total 0.5 mg/dL (0.2-1.3); Blood Urea Nitrogen 14 mg/dL (7-17); Calcium 9.4 mg/dL (8.4-10.2); Carbon Dioxide 23 mmol/L (22-30); Chloride 107 mmol/L (98-107); Estimated Glomerular Filt Rate > 60; Glucose 92 mg/dL (65-110); Potassium 3.9 mmol/L (3.4-5.0); Sodium 136 mmol/L (137-145); Uric Acid 3.9 mg/dL (2.5-7.5)
[2023-06-14 12:30] VITALS: BP 124/70; PULSE 62
[2023-06-14 12:45] VITALS: BP 127/82; PULSE 68
--- NOTE | 2023-06-14 12:57 | PC.NURSE ---
Dr. Barry informed of BP's, labs, and still has a headache. MD had me ask pt if she has the availability to check her BP's at home. Pt states she can buy a cuff. has already called in a antihypertensive medicine from the office to her pharmacy, but he doesn't want her to start it unless she starts having severe BP's with SBP>160 or DBP>110. Pt to check her BP at home 1-2 times per day. Only needs to fill prescription if she has the severe pressures. May follow up in office at her scheduled 4 wk appt. May take Tylenol and Motrin for headache and perineal discomfort. Pt informed of all this and to also call Dr. Barry's office on Saturday am with BP's if she had to start taking the antihypertensive. Pt instructed in getting up slowly if she does need to start taking the medicine to prevent dizziness and falling and to return to L&D if she has to start taking the medicine and BP's don't improve. Pt verbalizes understanding.
[2023-06-14 13:00] VITALS: BP 137/82; PULSE 68
== END 2023-06-14 13:33 | disposition home or self-care (01) ==
LOC: ANHOBOP 11:09 → ANHOBPP 11:14 → ANHLDR 06-19 06:23
PROVIDERS: PCP Physician Assistant; Visit Provider Student in an Organized Health Care Education/Training Program
DX: O13.9 Gestational [pregnancy-induced] hypertension without significant proteinuria, unspecified trimester (principal); Z3A.00 Weeks of gestation of pregnancy not specified
CPT/HCPCS: 36415; 80053; 82570; 84156; 84550; 85025; 99199

== ENCOUNTER 2024-12-29 09:35 | Outpatient (CLI) | payer OTHER, SELFPAY ==
[2024-12-29 09:59] LABS: Hematocrit 40.7 % (35.0-49.0); Hemoglobin 13.4 g/dL (12.0-15.0); Mean Corpuscular HGB Conc 32.9 g/dL (32-36); Mean Corpuscular Hemoglobin 30.4 pg (27.0-31.0); Mean Corpuscular Volume 92.3 fL (78.0-102.0); Mean Platelet Volume 8.9 fl (9.2-11.8); Platelet Count Result 322 K/mm3 (150-420); Red Blood Count 4.41 M/mm3 (4.20-5.40); Red Cell Distribution Width 13.2 % (11.6-14.4); White Blood Count 9.6 K/mm3 (4.8-10.8)
[2024-12-29 10:48] LABS: HIV 1 P24 AG Negative (Negative); HIV 1/2 AB Negative (Negative)
[2024-12-29 15:18] LABS: Beta HCG Quantitative > 15000.00 mIU/ML
[2024-12-31 01:39] LABS: Hepatitis B Surface Antigen NON-REACTIVE (NON-REACTIVE)
[2024-12-31 03:43] LABS: CMV IgG Antibody <0.60 U/mL; Rubella IgG Antibody 0.94 Index
== END 2024-12-29 09:36 | disposition home or self-care (01) ==
LOC: CHSLAB 09:38
PROVIDERS: PCP Physician Assistant; Visit Provider Student in an Organized Health Care Education/Training Program
DX: N91.2 Amenorrhea, unspecified (principal)
CPT/HCPCS: 36415; 84702; 85027; 86593; 86644; 86747; 86762; 86787; 86850; 86900; 86901; 87086; 87340; 87806

== ENCOUNTER 2025-06-19 10:05 | Emergency (ER) | payer OTHER, SELFPAY ==
[2025-06-19 10:09] VITALS: BP 141/92; PULSE 81; RESP 17; TEMP 36.6; O2SAT 100
[2025-06-19 11:33] LABS: Add Urine Microscopic? NO; Appearance Urine Clear (Clear); Glucose Urine UA Negative (Negative); Leukocyte Esterase Ur Negative LEU/UL (Negative); Nitrate Urine Negative (Negative); Specific Grav Ur 1.008 (1.001-1.035)
[2025-06-19 11:34] LABS: Hematocrit 39.7 % (37.0-47.0); Hemoglobin 13.4 g/dL (12.0-15.0); Immature Granulocyte Percent A 0.9 % (0-0.5); Lymphocytes Absolute Auto 1.98 K/mm3 (0.9-3.2); Mean Corpuscular HGB Conc 33.8 g/dl (32-36); Mean Corpuscular Hemoglobin 31.8 pg (26-34); Mean Corpuscular Volume 94.1 fl (80-100); Nucleated Red Blood Cells Absolute Auto 0.000 K/mm3 (0.0-0.012); Nucleated Red Blood Cells Perc 0.0 % (0.0-0.2); Platelet Count Result 266 k/mm3 (150-375); Red Blood Count 4.22 M/mm3 (4.2-5.4); White Blood Count 10.3 K/mm3 (4.5-10.0)
[2025-06-19 11:47] LABS: Alanine Aminotransferase 16 U/L (6-35); Albumin Level 4.2 g/dL (3.5-5.1); Alkaline Phosphatase 93 U/L (38-126); Anion Gap 8 mmol/L (4-12); Aspartate Amino Transferase 28 U/L (14-36); Bilirubin,Total 0.8 mg/dL (0.2-1.3); Blood Urea Nitrogen 6 mg/dL (7-17); Calcium 10.1 mg/dL (8.4-10.2); Carbon Dioxide 24 mmol/L (22-30); Chloride 101 mmol/L (98-107); Estimated CRCL calculation 110 ml/min; Estimated Glomerular Filt Rate > 60; Glucose 79 mg/dL (65-110); Lipase 485 U/L (23-300); Potassium 3.5 mmol/L (3.4-5.0); Sodium 133 mmol/L (137-145); Total Protein 7.9 g/dL (6.3-8.2)
--- NOTE | 2025-06-19 14:17 | ED.GENADULT ---
HPI - General Adult General Chief complaint: Nausea/Vomiting/Diarrhea Stated complaint: vomiting blood, 32 weeks preg Time Seen by Provider: 06/19/25 10:45 History of Present Illness HPI narrative: Patient is a 29-year-old female who is 32 weeks that presents ER with concerns for blood in emesis. Multiple bouts of emesis today and vomited up some brown material she that she is unsure what it was. Then she vomited again there streaks of blood. No melena. No diarrhea. She has had issues with vomiting throughout her and takes Reglan. Related Data Home Medications ?Medication ?Instructions ?Recorded ?Confirmed ?Last Taken ?Type prenat.vits,mode,rny-[id number]-[id number] 1 tablet PO DAILY 10/23/22 05/10/25 06/05/23 09:00 History Allergies Allergy/AdvReac Type Severity Reaction Status Date / Time No Known Allergies Allergy Verified 06/19/25 10:54 Review of Systems Review of Systems: All systems reviewed & are unremarkable except as noted in HPI and below Constitutional: Constitutional: Reports no additional constitutional complaints Cardiovascular: Cardiovascular: Reports no additional cardiovascular complaints Respiratory: Respiratory: Reports no additional respiratory complaints Gastrointestinal: Gastrointestinal: Reports no additional gastrointestinal complaints FOR[facility]LY [facility], [facility] Past Medical History Medical History History of smoking Scoliosis Overweight (BMI 25.0-29.9) and not yet delivered Suppression of menses Surgical History Surgical History History of spinal fusion Family History Family History Other Diabetes mellitus, Onset Age: 0m 0d uncle Social History Social History Smoking status: Former smoker Tobacco type: cigarettes Smoking end date: 08/19/22 Alcohol intake: former Alcohol use details: rarely Substance use: never Substance use type: marijuana Other substance usage details: Occasional Current Housing: Decline to Answer Concerned About Future Housing: Decline to Answer Difficulty Paying Gas/Electric Bills: Decline to Answer Difficulty Paying for Meds: Decline to Answer Currently Unemployed: Decline to Answer Education: Decline to Answer Difficulty w/ Childcare or Family Care: Decline to Answer Living arrangements: with family Occupation/Education: occupation 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 HEAD: Normocephalic, atraumatic. ENT: Mucous membranes moist. CHEST: Clear to auscultation. No respiratory distress. HEART: Regular rate and rhythm. Normal peripheral pulses. ABDOMEN: Soft, nontender, nondistended. EXTREMITIES: Normal range of motion. No edema. NEURO: Alert and oriented x3. PSYCH: Normal mood and affect. Course Course Emergency Course: Patient given reassurance. Spoke with GI. Will start on PPI daily. Follow-up with OB. Vital Signs Vital signs: Vital Signs Temperature 97.9 F 06/19/25 10:09 Pulse Rate 81 06/19/25 10:09 Respiratory Rate 17 06/19/25 10:09 Blood Pressure 141/92 H 06/19/25 10:09 Pulse Oximetry 100 06/19/25 10:09 Oxygen Delivery Room Air 06/19/25 10:09 Temperature 97.9 F 06/19/25 10:09 Pulse Rate 81 06/19/25 10:09 Respiratory Rate 17 06/19/25 10:09 Blood Pressure 141/92 H 06/19/25 10:09 Pulse Oximetry 100 06/19/25 10:09 Oxygen Delivery Room Air 06/19/25 10:09 Medical Decision Making Differential Diagnosis Differential Diagnosis: Upper GI bleed, lower GI bleed, Anahi-Sparks tear, gastritis Vital Signs Vital Signs: Vital Signs Temperature 97.9 F 06/19/25 10:09 Pulse Rate 81 06/19/25 10:09 Respiratory Rate 17 06/19/25 10:09 Blood Pressure 141/92 H 06/19/25 10:09 Pulse Oximetry 100 06/19/25 10:09 Oxygen Delivery Room Air 06/19/25 10:09 Temperature 97.9 F 06/19/25 10:09 Pulse Rate 81 06/19/25 10:09 Respiratory Rate 17 06/19/25 10:09 Blood Pressure 141/92 H 06/19/25 10:09 Pulse Oximetry 100 06/19/25 10:09 Oxygen Delivery Room Air 06/19/25 10:09 Lab Data 06/19/25 10:55 06/19/25 10:55 Labs: Lab Results 06/19/25 Range/Units 10:55 WBC 10.3 H (4.5-10.0) K/mm3 RBC 4.22 (4.2-5.4) M/mm3 Hgb 13.4 (12.0-15.0) g/dL Hct 39.7 (37.0-47.0) % MCV 94.1 (80-100) fl MCH 31.8 (26-34) pg MCHC 33.8 (32-36) g/dl RDW 13.1 (11.5-14.5) % Plt Count 266 (150-375) k/mm3 MPV 9.0 (7.4-10.4) fl Immature Gran % (Auto) 0.9 H (0-0.5) % Neut % (Auto) 72.9 (45.5-73.1) % Lymph % (Auto) 19.2 (18.3-44.2) % [place] % (Auto) 6.0 (2.6-8.5) % Eos % (Auto) 0.5 (0-4.4) % Baso % (Auto) 0.5 (0.2-1.2) % Lymph # (Auto) 1.98 (0.9-3.2) K/mm3 [place] # (Auto) 0.6 (0.1-0.6) K/mm3 Eos # (Auto) 0.1 (0-0.3) K/mm3 Baso # (Auto) 0.1 (0.0-0.1) K/mm3 Abs Immat Gran (auto) 0.09 H (0.00-0.031) K/mm3 Absolute Neuts (auto) 7.5 H (1.3-6.7) K/mm3 Absolute Nucleated RBC 0.000 (0.0-0.012) K/mm3 Nucleated RBC % 0.0 (0.0-0.2) % Sodium 133 L (137-145) mmol/L Potassium 3.5 (3.4-5.0) mmol/L Chloride 101 (98-107) mmol/L Carbon Dioxide 24 (22-30) mmol/L Anion Gap 8 (4-12) mmol/L BUN 6 L D (7-17) mg/dL Creatinine 0.56 L (0.7-1.0) mg/dL Estim Creat Clear Calc 110 ml/min Estimated GFR > 60 (59 - ) Glucose 79 (65-110) mg/dL Calcium 10.1 (8.4-10.2) mg/dL Total Bilirubin 0.8 (0.2-1.3) mg/dL AST 28 (14-36) U/L ALT 16 (6-35) U/L Alkaline Phosphatase 93 (38-126) U/L Total Protein 7.9 (6.3-8.2) g/dL Albumin 4.2 (3.5-5.1) g/dL Lipase 485 H (23-300) U/L Urine Color Yellow (Yellow) Urine Appearance Clear (Clear) Urine pH 7.5 (5.0-9.0) Ur Specific [place]fer 1.008 (1.001-1.035) Urine Protein Negative (Negative) mg/dL Urine Glucose (UA) Negative (Negative) mg/dL Urine Ketones 3+ H (Negative) mg/dL Ur Blood (Man) Negative (Negative) Urine Nitrate Negative (Negative) Urine Bilirubin Negative (Negative) Urine Urobilinogen 0.2 (<2.0) mg/dL Leukocyte Esterase Rfl Negative (Negative) MUSA/UL Discharge Plan Discharge Clinical Impression: Gastritis Patient Disposition: Home Condition: Stable Instructions: Gastritis (ED) Additional Instructions: Return the ER if your vomiting more blood, you have loss of consciousness, or you have additional concerns. Patient Language: Sami Prescriptions: New omeprazole 20 mg capsule,delayed release(DR/EC) 20 mg PO DAILY Qty: 14 0RF No Action prenat.vits,mode,kda-iskf-jryjf Tablet 1 tablet PO DAILY ondansetron 4 mg tablet,disintegrating 4 mg PO Q6H PRN (Reason: nausea and vomiting) Qty: 30 2RF Follow-up/Referrals: Anali Jensen MD [Primary Care Provider, [employer]] - 1 Week
== END 2025-06-19 14:27 | disposition home or self-care (01) ==
PROVIDERS: Emergency Provider Emergency Medicine; PCP Obstetrics & Gynecology
DX: O99.613 Diseases of the digestive system complicating pregnancy, third trimester (principal); K29.70 Gastritis, unspecified, without bleeding; Z3A.32 32 weeks gestation of pregnancy; Z87.891 Personal history of nicotine dependence
CPT/HCPCS: 36415; 80053; 81003; 83690; 85025; 99283

== ENCOUNTER 2025-08-12 01:48 | Inpatient (IN) | payer OTHER, SELFPAY ==
[2025-08-12] VITALS (31 sets, daily range): BP systolic 80–143; BP diastolic 61–101; PULSE 39–111; RESP 12–18; TEMP 36.4–37.2; O2SAT 88–100; BMI 26.9
[2025-08-12] MEDS: ONDANSETRON INJ 4 MG/2 ML VIAL IV PUSH (02:06)
[2025-08-12] MEDS: fentaNYL CITRATE INJ (*CRX) 100 MCG/2 ML VIAL 50 MCG IV PUSH (02:10)
[2025-08-12 02:20] LABS: Hematocrit 37.8 % (37.0-47.0); Hemoglobin 13.1 g/dL (12.0-15.0); Immature Granulocyte Percent A 1.1 % (0-0.5); Lymphocytes Absolute Auto 3.13 K/mm3 (0.9-3.2); Mean Corpuscular HGB Conc 34.7 g/dl (32-36); Mean Corpuscular Hemoglobin 31.8 pg (26-34); Mean Corpuscular Volume 91.7 fl (80-100); Nucleated Red Blood Cells Absolute Auto 0.000 K/mm3 (0.0-0.012); Nucleated Red Blood Cells Perc 0.0 % (0.0-0.2); Platelet Count Result 291 k/mm3 (150-375); Red Blood Count 4.12 M/mm3 (4.2-5.4); White Blood Count 16.8 K/mm3 (4.5-10.0)
[2025-08-12 02:38] LABS: Alanine Aminotransferase 16 U/L (6-35); Albumin Level 4.0 g/dL (3.5-5.1); Alkaline Phosphatase 147 U/L (38-126); Anion Gap 10 mmol/L (4-12); Aspartate Amino Transferase 25 U/L (14-36); Bilirubin,Total 0.8 mg/dL (0.2-1.3); Blood Urea Nitrogen 5 mg/dL (7-17); Calcium 9.5 mg/dL (8.4-10.2); Carbon Dioxide 16 mmol/L (22-30); Chloride 106 mmol/L (98-107); Estimated Glomerular Filt Rate > 60; Glucose 101 mg/dL (65-110); Potassium 3.4 mmol/L (3.4-5.0); Sodium 132 mmol/L (137-145); Total Protein 7.9 g/dL (6.3-8.2)
[2025-08-12] MEDS: OXYTOCIN 30 UNITS/NS 500 ML 30 UNITS/500 ML BAG 999 UNITS IV CONT (02:39)
--- NOTE | 2025-08-12 02:41 | WPDHPUPDATE1 ---
History and Physical Update Update Date/Time: 08/12/25 02:41 30 yo who presents in labor at 40w1d. History and Physical has been reviewed, including an updated exam of the patient. There are NO changes in the patient's condition. Risks, benefits, and alternatives have been discussed and questions answered. Patient agrees to proceed with procedure. A/P: admit to L&D routine admission orders prenatals reviewed Rh neg, will need rhogam GBS neg continuous EFM
--- NOTE | 2025-08-12 02:42 | PM.OBPRVD ---
OB - Vaginal Delivery Note Procedure Delivery date: 08/12/25 Induction method: None Delivery augmentation: Rupture of Membranes Delivery monitor: External FHT and External Uterine Route of delivery: Episiotomy description: None Laceration Description: None Specimen: No Quantitative Blood Loss (ml): 100 Anesthesia type: None Disposition: Floor Narrative: Patient pushed for a spontaneous vaginal delivery. The fetus was delivered atraumatically and placed on the maternal abdomen. The cord was clamped and cut after 1 minute of life. The cord was double clamped and cut and a segment of cord was collected for cord gases. Cord blood was collected for blood type and Coomb's testing. The placenta delivered spontaneously and was noted to be intact. The perineum was inspected and noted to be intact. There was a small superficial left labial laceration that was hemostatic. The fundus was noted to be firm and good hemostasis was noted. The mom and were stable in the delivery room. Baby Date of : 08/12/25 Time of : 02:34 Gestational Age by Date: 40 gender: Female presentation: vertex position: Right Occiput Anterior Placenta delivery description: Spontaneous Cord Vessel Description: 3 Vessels score one minute: 9 score five minutes: 9
--- NOTE | 2025-08-12 02:47 | LDADM ---
This patient, Basilia Young, was admitted to Labor/Delivery/Recovery 106 on 08/12/25 at 01:48. Plans for labor, pain management and were discussed with patient. Patient/family oriented to hospital policies and general routines including ID bracelet, bed and alarms, visiting hours, pain management, procedures, bathroom and other care routines, personal items, smoking policy, room service/diet and guest tray routines, security routines, and visiting hours. Patient/Family are encouraged to report perceived risks to care and to ask questions if they do not understand what they are told or what they should do. See OBIX for further documentation.
[2025-08-12] MEDS: OXYTOCIN 30 UNITS/NS 500 ML 30 UNITS/500 ML BAG 125 UNITS IV CONT (03:19)
[2025-08-12] MEDS: IBUPROFEN 600 MG TABLET PO ×3 (04:17→16:05)
[2025-08-12 04:22] LABS: Syphilis IgG/IgM Antibody Non-Reactive (Nonreactive)
[2025-08-12] MEDS: WITCH HAZEL 40 PADS 1 PAD TOPICAL (05:03)
[2025-08-12] MEDS: BENZOCAINE 20% AER SPR (*SP) 56 GM CAN 1 SPRAY TOPICAL (05:03)
--- NOTE | 2025-08-12 05:06 | OBPPTRN ---
Patient transferred to post room #288 via wheelchair. Support person present. Oriented to unit, room, information board, rooming in, admission packet and security measures. Patient verbalizes understanding.
[2025-08-12] MEDS: MULTIVIT/MIN/PREN/FOL AC/IRON TABLET 1 TAB PO (09:18)
[2025-08-12] MEDS: DOCUSATE SODIUM 100 MG CAPSULE PO (09:18)
[2025-08-12] MEDS: ACETAMINOPHEN 325 MG TABLET 650 MG PO ×2 (09:25→16:06)
--- NOTE | 2025-08-12 09:26 | P.PNOB_ITS ---
OB - PN: Subj Subjective Date/time seen: 08/12/25 09:26 Patient comments: no complaints, pain well controlled and tolerating diet [place] feeding status: exclusively breast feeding Narrative: patient doing well this AM. No complaints. Pain is well controlled. She reports minimal bleeding. She is ambulating and voiding without difficulty. She is tolerating PO. She denies N/V, fever, chills. OB - PN: Obj Data Labs 08/12/25 02:14 08/12/25 02:14 Labs: Laboratory Results - last 24 hr 08/12/25 02:14 WBC 16.8 H RBC 4.12 L Hgb 13.1 Hct 37.8 MCV 91.7 MCH 31.8 MCHC 34.7 RDW 13.2 Plt Count 291 MPV 9.2 Immature Gran % (Auto) 1.1 H Neut % (Auto) 73.6 H Lymph % (Auto) 18.6 [place] % (Auto) 5.9 Eos % (Auto) 0.5 Baso % (Auto) 0.3 Lymph # (Auto) 3.13 [place] # (Auto) 1.0 H Eos # (Auto) 0.1 Baso # (Auto) 0.1 Abs Immat Gran (auto) 0.18 H Absolute Neuts (auto) 12.4 H Absolute Nucleated RBC 0.000 Nucleated RBC % 0.0 Sodium 132 L Potassium 3.4 Chloride 106 Carbon Dioxide 16 L Anion Gap 10 BUN 5 L Creatinine 0.56 L Estim Creat Clear Calc Not Reportable Estimated GFR > 60 Glucose 101 Calcium 9.5 Total Bilirubin 0.8 AST 25 ALT 16 Alkaline Phosphatase 147 H Total Protein 7.9 Albumin 4.0 Syphilis IgG/IgM Ab Non-reactive Blood Type O Negative Antibody Screen Negative OB - PN A/P Plan day: 1 Plan: routine care Comments: patient doing well H/H stable continue routine care Time Spent With Patient Time: Total time spent is greater than 50% in coordination of care (as documented) at patient's floor/unit and/or counseling patient: Time with patient: less than 15 minutes Review of Systems 2 Review of Systems: All systems reviewed & are unremarkable except as noted in HPI and below Exam 2 Const: General: comfortable and no acute distress Resp: Effort & Inspection: normal respiratory effort Cardio: Rate: regular rate GI: GI Palp: Yes Soft to palpation and No Tenderness to palpation present (GI) Auscultation: normal bowel sounds Other: fundus firm and below umbilicus. Psych: Affect: normal affect
--- NOTE | 2025-08-12 10:36 | PC.NURSE ---
1030- Pt called out stating she had a gush. Large clot noted on pad. Fundus firm at umbilicus, no trickling noted- This RN escorted pt to restroom. Pericare performed. peripad weighed-240mls. This RN called to report findings- no new orders received, continue routine care. Pt instructed to call RN immediately if she feels anymore bleeding.
[2025-08-12] MEDS: METHYLERGONOVINE MALEATE 0.2 MG TABLET PO ×3 (11:40→23:40)
[2025-08-12] MEDS: METHYLERGONOVINE MALEATE 0.2 MG TABLET (11:44)
[2025-08-12] MEDS: LACTATED RINGERS 1,000 ML 125 ML IV CONT (12:10)
--- NOTE | 2025-08-12 12:44 | P.PNOB_ITS ---
OB - PN: Subj Subjective Date/time seen: 08/12/25 12:44 Interval history: Called to bedside by RN for bleeding. Patient had passed several large clots and continues to have some bleeding. She was over 1000mL of blood by the time I arrived. Patient had received PO methergine and [place] misoprostol. Vital signs are stable and patient is alert in bed. baby status: doing well OB - PN: Obj Data Labs 08/12/25 02:14 08/12/25 02:14 Labs: Laboratory Results - last 24 hr 08/12/25 02:14 WBC 16.8 H RBC 4.12 L Hgb 13.1 Hct 37.8 MCV 91.7 MCH 31.8 MCHC 34.7 RDW 13.2 Plt Count 291 MPV 9.2 Immature Gran % (Auto) 1.1 H Neut % (Auto) 73.6 H Lymph % (Auto) 18.6 [place] % (Auto) 5.9 Eos % (Auto) 0.5 Baso % (Auto) 0.3 Lymph # (Auto) 3.13 [place] # (Auto) 1.0 H Eos # (Auto) 0.1 Baso # (Auto) 0.1 Abs Immat Gran (auto) 0.18 H Absolute Neuts (auto) 12.4 H Absolute Nucleated RBC 0.000 Nucleated RBC % 0.0 Sodium 132 L Potassium 3.4 Chloride 106 Carbon Dioxide 16 L Anion Gap 10 BUN 5 L Creatinine 0.56 L Estim Creat Clear Calc Not Reportable Estimated GFR > 60 Glucose 101 Calcium 9.5 Total Bilirubin 0.8 AST 25 ALT 16 Alkaline Phosphatase 147 H Total Protein 7.9 Albumin 4.0 Syphilis IgG/IgM Ab Non-reactive Blood Type O Negative Antibody Screen Negative OB - PN A/P Assessment and Plan (1) hemorrhage: Code(s): O72.1 - Other immediate hemorrhage Status: Acute Assessment and Plan: 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 pt received PO methergine and [place] misoprostol bedside US was performed which showed some clot within the endometrial cavity the JAMES device was placed under bedside US guidance the device was placed on wall suction device placement was again confirmed by US after suction was applied will continue PO methergine Q6h will order STAT H/H continue to monitor blood output with JAMES device Time Spent With Patient Time: Total time spent is greater than 50% in coordination of care (as documented) at patient's floor/unit and/or counseling patient: Review of Systems 2 Review of Systems: All systems reviewed & are unremarkable except as noted in HPI and below Exam 2 Const: General: cooperative and comfortable Resp: Effort & Inspection: normal respiratory effort and able to speak in complete sentences Cardio: Rate: tachycardic GI: Inspection: normal to inspection GI Palp: Yes abdominal tenderness (uterus firm, mildly tender) : External Female Exam: normal external appearance Speculum Exam - Vagina: vaginal bleeding Bimanual exam- vagina & uterus: enlarged and other (fundus firm)
[2025-08-12 13:13] LABS: Hematocrit 31.7 % (37.0-47.0); Hemoglobin 10.3 g/dL (12.0-15.0)
--- NOTE | 2025-08-12 13:17 | PC.NURSE ---
Addendum entered by Letty Pompa RN 08/12/25 14:12: Note Correction-1235 Fentanyl 100mcg IV push given per Doreen OGLESBY RN. Original Note: 1130- Assisted pt up to restroom, peripad, chux with large amount of bright red blood, fundus firm at 1 below umbilicus. when pt sat on toilet, very large clot expelled from vagina. Pt assisted back to bed fundus firm at 1 [address]. This RN called Dr. Barry to report-order given for Methregine 0.2mg tab x one now. 1140-This RN administered medication to pt. 1140-This RN called LD for nurse to come and assess pt, Yumiko SPRING came to pts bedside-more clots expelled during internal exam per Yumiko OGLESBY RN. 1200- Dr. Barry called to come in and exam pt, order given for cytotec 1000mg now [place]. Doreen OGLESBY RN here at pts bedside performing continuous fundal massage, 185ml clots expelled. 1231-Dr. Barry at pts bedside, 1235-Fentanyl 1000mcg IV push given by Doreen OGLESBY RN.1240-Clary placed per Dr. Barry, this RN attached Clary tubing to wall suction at 80mmHg. 144-FC placed per Doreen OGLESBY RN. Chux removed from pt-21mls blood. Pericare performed per this RN. No bleeding noted with fundal massage.
[2025-08-12] MEDS: oxyCODONE HCL (*CRX) 5 MG TAB IR (14:25)
--- NOTE | 2025-08-12 14:28 | PC.NURSE ---
1420-This RN called Dr. Barry for pain med order-order received-Oxycodone 5mg po q4 prn.
[2025-08-12] MEDS: oxyCODONE HCL (*CRX) 5 MG TAB IR PO (19:21)
[2025-08-13] MEDS: IBUPROFEN 600 MG TABLET PO ×2 (02:36→14:00)
[2025-08-13 05:00] VITALS: BP 102/55; PULSE 58; RESP 16; TEMP 36.7; O2SAT 99
[2025-08-13] MEDS: ACETAMINOPHEN 325 MG TABLET 650 MG PO ×2 (05:22→14:00)
[2025-08-13 05:23] LABS: Hematocrit 25.2 % (37.0-47.0); Hemoglobin 8.5 g/dL (12.0-15.0)
[2025-08-13] MEDS: METHYLERGONOVINE MALEATE 0.2 MG TABLET PO ×2 (05:23→14:00)
[2025-08-13] MEDS: DOCUSATE SODIUM 100 MG CAPSULE PO (07:20)
[2025-08-13] MEDS: oxyCODONE HCL (*CRX) 5 MG TAB IR PO ×2 (07:20→14:59)
[2025-08-13] MEDS: MULTIVIT/MIN/PREN/FOL AC/IRON TABLET 1 TAB PO (07:20)
[2025-08-13 07:30] VITALS: BP 115/75; PULSE 66; RESP 16; TEMP 36.9; O2SAT 100
--- NOTE | 2025-08-13 08:52 | P.PNOB_ITS ---
OB - PN: Subj Subjective Date/time seen: 08/13/25 08:52 Interval history: Patient comments: no complaints, pain well controlled and tolerating diet [place] feeding status: exclusively breast feeding Narrative: Patient is tearful this morning. She is uncomfortable with the Clary device and the urinary catheter. She reports minimal bleeding. She is tolerating PO. She denies N/V, fever, chills. OB - PN: Obj Data Labs 08/13/25 05:07 08/12/25 02:14 Labs: Laboratory Results - last 24 hr 08/12/25 08/13/25 12:55 05:07 Hgb 10.3 L 8.5 L Hct 31.7 L 25.2 L OB - PN A/P Plan day: 1 Plan: routine care Comments: patient doing well overall H/H , will continue iron supplementation CLARY device removed this morning. Minimal output overnight VSS will continue to monitor bleeding murray catheter removed continue routine care Time Spent With Patient Time: Total time spent is greater than 50% in coordination of care (as documented) at patient's floor/unit and/or counseling patient: Time with patient: less than 15 minutes Review of Systems 2 Review of Systems: All systems reviewed & are unremarkable except as noted in HPI and below Exam 2 Const: General: comfortable and no acute distress Resp: Effort & Inspection: normal respiratory effort Cardio: Rate: regular rate GI: GI Palp: Yes Soft to palpation and No Tenderness to palpation present (GI) Auscultation: normal bowel sounds Other: fundus firm and below umbilicus. Psych: Affect: normal affect
--- NOTE | 2025-08-13 11:40 | PC.NURSE ---
Consulted with patient to assess needs related to . Discussed with mother her successes, concerns and any questions she has. We reviewed working with the , supporting breast, protecting her nipples with an optimal deep latch, good positioning, and good hand washing. Encouraged understanding the benefits of skin to skin, responding to feeding cues, frequencies of feeding 8-12 times in 24 hours (approximately 2-3 hours), duration of feedings, milk production, intake/output feeding sheet and signs of adequate intake encouraging swallowing at the breast. Reviewed positioning and alignment, supporting breast, off-centered (asymmetrical latch) and leading with the chin with big, open, wide gape. latched optimally to the [left] breast in [cross cradle] position. Education given to the mother of how to visualize the suckling (with good rocking jaw motion) swallows (dropping of the lower jaw) and how to listen for drinking at the breast (the ka sound). The was [able] to maintain latch without discomfort to mother. Nipple care reviewed with optimal latch, good positioning and using clean hands when touching her breast. Resources used to facilitate learning were used from the [visual handouts/ tool/mom and baby guide]. Discussed with mother that due to her blood loss after delivery, her milk supply may be affected, she does have a breast pump at home if needed. Mother voiced understanding of the education shared, to call for assistance if the does not latch or if there is discomfort with . Reported to the Primary RN.
--- NOTE | 2025-08-13 13:52 | PM.OBDSVD ---
DS: Admitting Diagnosis Discharge Date 08/13/25 Admitting Diagnosis intrauterine at term DS: Discharge Diagnosis Discharge Diagnosis (1) Vaginal delivery: Code(s): O80 - Encounter for full-term uncomplicated delivery Status: Acute OB - DS: Summary Hospital Course Hospital Course: 30-year-old who presented in labor. Labor progressed and patient had an uncomplicated vaginal delivery. Patient then developed hemorrhage. Patient received several uterotonics. The patient ultimately had the Clary device placed and monitored overnight. Dated device was removed with minimal output overnight. Patient remained hemodynamically stable with no continued bleeding. Patient requested discharge home on day 1. OB Procedures : None OB Procedures Intrapartum: Spontaneous Vag Delivery OB Procedures: : Other ( hemorrhage ) Peripartum Data Infant Delivery Method: Natural Vaginal Laceration Description: None Episiotomy description: None complications: uterine atony Status at Discharge Functional status at discharge: independent ambulation Overall status at discharge: patient is back to baseline Time Spent with Patient Time attestation: Total time spent providing and/or coordinating discharge services: Time spent: Less than 30 minutes Exam Const: General: comfortable and no acute distress Resp: Effort & Inspection: normal respiratory effort Auscultation: clear to auscultation bilaterally Cardio: Rate: regular rate GI: GI Palp: Yes Soft to palpation Auscultation: normal bowel sounds Other: Fundus firm below umbilicus Psych: Appearance: grossly normal Mental Status: mental status grossly normal Affect: normal affect DS: Data Data Completed and Pending Labs on day of discharge: Labs from last 24 hours 08/13/25 05:07 Hgb 8.5 L Hct 25.2 L Discharge Plan Discharge Discharging Clinician: Edgard Barry Patient Disposition: Home Activity: as tolerated and pelvic rest Diet: regular Patient Instructions: Antibiotic Form Patient Language: Guinean Stand Alone Forms: General Discharge Information Follow-up/Referrals: Edgard Barry MD [Physician, ECONOMETRICIAN] - 4 Weeks Discharge Medications: New acetaminophen 500 mg tablet 500 mg PO Q6H PRN (Reason: pain) Qty: 30 0RF ibuprofen 600 mg tablet 600 mg PO Q6H PRN (Reason: pain) Qty: 30 0RF ferrous sulfate 325 mg (65 mg iron) tablet 325 mg PO DAILY Qty: 60 0RF Continued prenat.vits,mode,uev-cjic-yduas Tablet 1 tablet PO DAILY ondansetron 4 mg tablet,disintegrating 4 mg PO Q6H PRN (Reason: nausea and vomiting) Qty: 30 2RF omeprazole 20 mg capsule,delayed release(DR/EC) 20 mg PO DAILY Qty: 14 0RF Date of admission: 08/12/25 01:48 Primary Care Provider: UNKNOWN,DOCTOR Admitting Provider: Edgard Barry Attending physician on admission: Edgard Barry Condition: Stable
--- NOTE | 2025-08-13 16:45 | PC.NURSE ---
Patient declines rubella vaccine. She has the VIS to look over and will contact her primary care provider if she chooses to get the booster. She is aware of the risks of not being rubella immune during future pregnancies.
[2025-08-14 09:35] VITALS: BP 118/72; PULSE 84; RESP 18; TEMP 36.9; O2SAT 100
== END 2025-08-13 17:10 | disposition home or self-care (01) | DRG 768 ==
LOC: ANHLDR 01:53 → ANHOB2 05:44
PROVIDERS: Admitting Provider Student in an Organized Health Care Education/Training Program; Visit Provider Student in an Organized Health Care Education/Training Program
DX: O62.3 Precipitate labor (principal); Z37.0 Single live birth; O72.1 Other immediate postpartum hemorrhage; O70.0 First degree perineal laceration during delivery; O67.8 Other intrapartum hemorrhage; Z3A.40 40 weeks gestation of pregnancy
CPT/HCPCS: 36415; 80053; 85014; 85018; 85025; 86593; 86850; 86900; 86901; A9270; J2405; J2590; J3010; J7120